=== PATIENT | female | born 1950 | race Caucasian/White ===

== ENCOUNTER → 2017-05-01 | Outpatient (CLI) | payer MEDICARE ==
[~2017-05-01] MED LIST: ACE3 PO; ACE500 PO; CIT20 PO; CITA-139 PO; CLIN300C99 PO; CLOB15CR22 TP; FLU45SYR25 IM ONLY; FLU60SYR30 IM ONLY; LEVO50 PO; LEVO50TA86 PO; LEVO75TA73 PO; LOM PO; LOR7.5/325 PO; MID PO; MOM PO; NAP500; OXY10 PO; OXYC1TAB54 PO; PER PO; PNEU0.5D3 IM; PRO25 PO; PYRI50CA PO; RIV10 PO; TRA50 PO; TRIA15CR40 TP; WAR5 PO; ZOL5 PO; ZOLM2.5 PO
[2017-05-01 14:22] LABS: LDL CHOLESTEROL 85 mg/dl
== END ==
LOC: LAB 13:38
PROVIDERS: ATTEND Nurse Practitioner Family
DX: E78.5 Hyperlipidemia, unspecified (principal); E11.9 Type 2 diabetes mellitus without complications; E03.9 Hypothyroidism, unspecified; R03.0 Elevated blood-pressure reading, without diagnosis of hypertension
CPT/HCPCS: 36415; 82040; 82247; 82310; 82374; 82435; 82465; 82565; 82947; 83036; 83718; 84075; 84132; 84155; 84295; 84443; 84450; 84460; 84478; 84520

== ENCOUNTER 2017-07-07 00:53 | Day surgery (SDC) | payer MEDICARE ==
[~2017-07-07] VITALS: Ht 162.6 cm; Wt 115.2 kg
[~2017-07-07 00:53] MED LIST changes: -CITA-139 PO; +CITA-145 PO
[2017-07-07] MEDS ORDERED: OPHTHALMIC PROCEDURE 1 OU PRN (06:00)
[2017-07-07] MEDS ORDERED: OPHTHALMIC PROCEDURE 2 OU PRN ×2 (06:00)
[2017-07-07 13:40] VITALS: BP 158/87
[2017-07-07] MEDS ORDERED: LIDOCAINE/SOD BICARB 8.4% SYR ID ONE (14:00)
[2017-07-07] MEDS ORDERED: NORMOSOL R SOLN(*) 1000 ML BAG 1,000 ML IV PRN (14:00)
[2017-07-07 15:31] VITALS: BP 150/73
--- NOTE | 2017-07-09 13:22 | FOSTER LEFT EYE CATARACT ---
EVENT DATE: July 07, 2017 SURGEON: Kee Carranza MD ANESTHESIA: Topical. PREOPERATIVE DIAGNOSIS Cataract, left eye. POSTOPERATIVE DIAGNOSIS Cataract, left eye. PROCEDURE Phacoemulsification of cataractous lens with implantation of an intraocular lens , left eye. DESCRIPTION OF PROCEDURE The risks and benefits and alternatives were carefully discussed with the patient, and preoperative consent was obtained. The patient was brought to the operating room after receiving topical anesthetic. The patient was prepped and draped using sterile technique in the usual manner. A stab incision was made, and the chamber was inflated with preservative-free lidocaine. DuoVisc was injected to inflate the chamber. A 2.2 mm blade was used to enter the anterior chamber. Utrata forceps were used to tear a circular capsulorrhexis. BSS was used to hydrodissect the nucleus. Phaco tip was introduced, and the nucleus was chopped into four quadrants. Each quadrant was removed. The I/A tip was used to remove the cortex. The bag was inflated with ProVisc. The intraocular lens was injected into the capsular bag. The I/A tip was used to remove the ProVisc. The wound was found to be watertight. Vigamox, Nevanac, and Maxitrol ointment were placed in the patient's eye. The patient's eye was patched, and the patient was taken to the recovery room in stable condition. The patient was examined in the recovery room and found to be stable prior to release from the hospital. ANALIA
== END 2017-07-07 15:55 | disposition home health service (06) ==
LOC: OR 00:53
PROVIDERS: ATTEND Ophthalmology
DX: H25.22 Age-related cataract, morgagnian type, left eye (principal); H25.811 Combined forms of age-related cataract, right eye; E11.9 Type 2 diabetes mellitus without complications
CPT/HCPCS: 36416; 66984; 82948; V2632

== ENCOUNTER → 2017-09-29 | Outpatient (CLI) | payer MEDICARE ==
[2017-09-29 12:14] LABS: PLATELET COUNT, AUTOMATED 375 K/uL (150-450)
== END ==
LOC: LAB 11:43
PROVIDERS: ATTEND Nurse Practitioner Family
DX: E11.9 Type 2 diabetes mellitus without complications (principal); E78.5 Hyperlipidemia, unspecified; E03.9 Hypothyroidism, unspecified
CPT/HCPCS: 36415; 82040; 82247; 82310; 82374; 82435; 82565; 82947; 83036; 84075; 84132; 84155; 84295; 84443; 84450; 84460; 84520; 85025

== ENCOUNTER → 2018-04-16 | Outpatient (CLI) | payer MEDICARE ==
[~2018-04-16] MED LIST changes: +CITA-137 PO; +DIPH-1 PO; +FURO-45 PO; +PNEI IM; +POTA-23 PO
[2018-04-16 14:05] LABS: PLATELET COUNT, AUTOMATED 389 K/uL (150-450)
[2018-04-16 15:54] LABS: LDL CHOLESTEROL 101 mg/dl
== END ==
LOC: LAB 13:24
PROVIDERS: ATTEND Nurse Practitioner Family
DX: E03.9 Hypothyroidism, unspecified (principal); E11.9 Type 2 diabetes mellitus without complications; E78.5 Hyperlipidemia, unspecified; M85.80 Other specified disorders of bone density and structure, unspecified site
CPT/HCPCS: 36415; 82040; 82247; 82306; 82310; 82374; 82435; 82465; 82565; 82947; 83036; 83718; 84075; 84132; 84155; 84295; 84443; 84450; 84460; 84478; 84520; 85025

== ENCOUNTER → 2018-05-22 | Outpatient (CLI) | payer MEDICARE ==
--- NOTE | 2018-05-22 15:28 | RADIOLOGY IMAGING REPORT ---
FACILITY: [facility] - [place] PATIENT NAME: Ayesha Riggs : 1950 MR: [id number] V: [id number] EXAM DATE: [id number] ORDERING PHYSICIAN: KENJI LEGER TECHNOLOGIST: Location: [facility] Patient: Ayesha Riggs : 1950 Visit/Account:[id number] Date of Sevice: 05/22/2018 DEXA Scan Clinical history: Postmenopausal screening. Comparison: DEXA scan from -. LUMBAR SPINE: The bone mineral density (BMD) measured from L1-L4 correlates with a Z-score of 1.1 and a T-score of 0.6 which is Normal as defined by the World Health Organization. The corresponding risk of fracture in the lumbar spine is Not increased compared with a young adult reference population. This value robert s increase by 7.4 % since the prior study. More than 5% change is considered significant. HIP: Bone mineral density (BMD) measured in the RIGHT total hip region correlates with a Z-score zero and a T-score of by 0.6 which is normal as defined by the World Health Organization. The corresponding risk of fracture in the hip is 1-2 t imes increased compared to a young adult reference population. This value has decrease by 5.2 % since the prior study. More than 5% change is considered significant. T score right femoral neck -1.3 Bone mineral density (BMD) measured in the Femoral Neck region measures 0.860 g/cm?. IMPRESSION: 1. Lumbar spine: Normal. There has been 7.4% increase in the bone mineral density since the previou s exam. 2. Right Total Hip: Normal. There has been 5.2% decrease in the bone mineral density since the prev ious exam. 3. Femoral Neck: Bone Mineral Density is 0.860 g/cm? The next DEXA scan of this patient should include the following sites: L1-L4 and the right hip. FRAX? WHO Fracture Risk Assessment Tool link: <http://www.shef.ac.uk/FRAX/tool.jsp?locationValue=9> PLEASE NOTE: 1) The World Health Organization defines low BMD as follows: T-score Normal > -1 Osteopenia < -1 and > -2.5 Osteoporosis < -2.5 without fractures Established osteoporosis < -2.5 with fractures 2) In general, you may wish to consider: Diagnosis Treatment Follow-up DEXA Normal BMD Prevention 2-3 years Osteopenia Prevention/therapy 1-2 years Osteoporosis Therapy Yearly 3) Fracture risk estimated from the T-score is more accurate for vertebral fractures (often spontane ous) than for hip fractures. Report Dictated By: Kadie Chase MD at 05/22/2018 3:22 PM Report E-Signed By: Kadie Chase MD at 05/22/2018 3:23 PM WSN:[email or web address]
--- NOTE | 2018-05-23 17:25 | RADIOLOGY IMAGING REPORT ---
FACILITY: [facility] - [place] PATIENT NAME: SWAPNA GALLEGOS : [id number] MR: [id number] V: [id number] EXAM DATE: [id number] ORDERING PHYSICIAN: KENJI LEGER TECHNOLOGIST: Tessie Morales PROCEDURE:BILATERAL DIGITAL SCREENING MAMMOGRAM WITH CAD ASSISTED INTERPRETATION & 3D TOMOSYNTHESIS COMPARISON:Prior mammograms dated 05/13/10, 05/05/16 INDICATIONS:screening FINDINGS: The breasts are almost entirely fatty. Most of the parenchymal pattern has remained stable when allowing for difference in mammographic technique & patient positioning. The septated cystic structure previously demonstrated in the 1130 position of the Left breast appears much smaller. DIAGNOSTIC CATEGORY 2--BENIGN FINDING. RECOMMENDATIONS: ROUTINE MAMMOGRAM AND CLINICAL EVALUATION. IMPRESSION: BIRADS 2: Benign finding. No significant abnormality is seen. Dictated by: Kadie Chase M.D. on 05/23/2018 at 8:28 Transcribed by: NAYELY on 05/23/2018 at 10:14 Approved by: Kadie Chase M.D. on 05/23/2018 at 17:24 [facility]
== END ==
LOC: MAMO 01:30
PROVIDERS: ATTEND Nurse Practitioner Family
DX: Z13.820 Encounter for screening for osteoporosis (principal); Z12.31 Encounter for screening mammogram for malignant neoplasm of breast; Z78.0 Asymptomatic menopausal state
CPT/HCPCS: 77063; 77067; 77080